=== PATIENT | female | born 1930 | race Caucasian/White ===

== ENCOUNTER 2018-02-09 16:15 | Outpatient (CLI) | payer SELFPAY | END 2018-02-09 16:16 | disposition critical access hospital (66) | LOC: EMS 16:15 | PROVIDERS: ATTEND Surgery | DX: R06.00 Dyspnea, unspecified (principal) | CPT/HCPCS: A0425; A0429 ==

== ENCOUNTER 2018-02-09 16:37 | Emergency (ER) | payer SELFPAY ==
--- NOTE | 2018-02-09 17:08 | ED Physician Documentation ---
PD HPI DYSPNEA - Stated complaint Stated Complaint: DYSPNEA - Chief complaint Chief Complaint: Resp - History obtained from History obtained from: Patient, EMS - History of Present Illness Timing - onset: How many weeks ago (1) Timing - onset during: Rest Timing - details: Gradual onset Improved by: O2 Worsened by: Exertion Associated symptoms: Bilateral edema. No: Fever, Cough, Chest pain / discomfort , Palpitations Similar symptoms before: Has not had sx before - Additional information Additional information: The patient is an 87-year-old female who presents with dyspnea that has been getting progressively worse for the past week. She denies cough, chest pain, fever, or lightheadedness. She does report swelling in her feet and legs. She moved here from [place] 1 week ago to live with her granddaughter. She took an airplane flight to get here. Her past medical history is significant for atrial fibrillation, for which she is on digoxin. She is unclear regarding history of similar symptoms in the past. When medics arrived on scene they found the patient with low pulse oximetry of 87% on room air, improving to 99% on supplemental oxygen at 3 L nasal canula. Further history was obtained from the granddaughter after she arrived in the emergency department. She reports that the patient had been hospitalized at [facility] in [facility] for 1 month prior to the granddaughter removing her 1 week ago. She was diagnosed with pulmonary emboli , and colon cancer with pulmonary mets, considered terminal. She also has history of congestive heart failure and pneumonia. The patient's granddaughter has been administering low molecular weight heparin injections daily. She is requesting supplemental oxygen for home use. The patient has an advanced directive stating DO NOT RESUSCITATE, and the granddaughter has promised the patient she will not be hospitalized again. She has an appointment scheduled with Dr. Fisher in [place] for next week, Monday. Review of Systems Constitutional: denies: Fever Ears: denies: Tinnitus/ringing Nose: denies: Congestion Throat: denies: Sore throat Cardiac: denies: Chest pain / pressure, Palpitations Respiratory: reports: Dyspnea. denies: Cough GI: denies: Abdominal Pain, Nausea, Vomiting : denies: Dysuria Skin: denies: Rash Musculoskeletal: reports: Extremity swelling. denies: Extremity pain Neurologic: reports: Generalized weakness. denies: Focal weakness, Numbness, Headache PD PAST MEDICAL HISTORY - Past Medical History Cardiovascular: Congestive heart failure, Pulmonary embolism, Atrial fibrillation Respiratory: Pneumonia, Other (Lung CA) Endocrine/Autoimmune: Type 2 diabetes GI: Other (Colon CA) - Present Medications Home Medications: Ambulatory Orders Medication Instructions Recorded Confirmed Cholecalciferol (Vitamin D3) 02/09/18 [Vitamin D3] Digoxin [Lanoxin] 62.5 mcg PO 02/09/18 Ferrous Fumarate [Ferrous Fumarate] 02/09/18 Furosemide [Lasix] 20 mg PO DAILY #30 tablet 02/09/18 Levothyroxine Sodium [Tirosint] 125 mcg PO 02/09/18 Magnesium Oxide [Magnesium] 02/09/18 Mirtazapine [Remeron] 02/09/18 Quetiapine Fumarate 50 mg PO 02/09/18 Rabeprazole Sodium [Aciphex] 20 mg PO 02/09/18 Zopicolone 5 mg PO DAILY PM 02/09/18 - Allergies Allergies/Adverse Reactions: Allergies Allergy/AdvReac Type Severity Reaction Status Date / Time No Known Drug Allergies Allergy Verified 02/09/18 16:49 - Living Situation Living Situation: reports: With family Living Arrangement: reports: At home - Social History Does the pt smoke?: No Additional Social History: Moved here from [place] 1 week ago. - POLST POLST Status: DNR PD ED PE NORMAL - Vitals Vital signs reviewed: Yes (Hypertensive) - General General: Alert and oriented X 3, Well developed/nourished - HEENT HEENT: Atraumatic, Moist mucous membranes - Neck Neck: No adenopathy, No JVD (At 20 elevation.) - Cardiac Cardiac: RRR, No murmur - Respiratory Respiratory: Clear bilaterally - Abdomen Abdomen: Soft, Non tender, Other (Well-healed lower midline abdominal surgical scars.) - Back Back: No CVA TTP - Derm Derm: No rash - Extremities Extremities: No calf tenderness / cord, Other (1+ pedal edema bilaterally.) - Neuro Neuro: Alert and oriented X 3, No motor deficit, No sensory deficit Results - Vitals Vitals: Vital Signs - 24 hr 02/09/18 02/09/18 16:40 19:11 Temperature 36.4 C L Heart Rate 79 92 Respiratory 24 16 Rate Blood Pressure 157/93 H 141/77 H O2 Saturation 99 94 Oxygen O2 Source Nasal cannula Oxygen Flow Rate 4 - EKG (time done) 17:08 Rate: Rate (enter#) (96) Rhythm: Atrial fibrillation Alexander: RAD (+123.) Ischemia: Non specific changes (Diffuse T-wave flattening.) Computer interpretation: Agree with computer - Labs Labs: Laboratory Tests 02/09/18 02/09/18 02/09/18 15:59 17:00 17:45 WBC RBC Hgb Hct MCV MCH MCHC RDW Plt Count MPV Neut # Lymph # Norman # Eos # Baso # Absolute Nucleated RBC Nucleated RBC % Manual Slide Review WBC Morphology Platelet Estimate Platelet Morphology RBC Morph Micro Appear D-Dimer 467.8 H Sodium 137 Potassium 4.2 Chloride 104 Carbon Dioxide 27 Anion Gap 6.0 BUN 11 Creatinine 0.6 Estimated GFR (MDRD) 94 Glucose 123 H Calcium 8.3 L Total Bilirubin 0.4 AST 16 ALT 11 Alkaline Phosphatase 71 Troponin I B-Natriuretic Peptide Total Protein 5.8 L Albumin 2.8 L Globulin 3.0 Albumin/Globulin Ratio 0.9 L Lipase 32 Urine Color YELLOW Urine Clarity CLEAR Urine pH 7.0 Ur Specific [place] 1.020 Urine Protein NEGATIVE Urine Glucose (UA) NEGATIVE Urine Ketones NEGATIVE Urine Occult Blood NEGATIVE Urine Nitrite NEGATIVE Urine Bilirubin NEGATIVE Urine Urobilinogen 0.2 (NORMAL) Ur Leukocyte Esterase NEGATIVE Ur Microscopic Review NOT INDICATED Urine Culture Comments NOT INDICATED Last Dose Date Last Dose Time Digoxin 02/09/18 02/09/18 02/09/18 17:45 17:45 17:59 WBC 7.0 RBC 4.20 Hgb 10.8 L Hct 36.3 L MCV 86.5 MCH 25.7 L MCHC 29.7 L RDW 21.2 H Plt Count 218 MPV 7.3 L Neut # 5.2 Lymph # 1.1 L Norman # 0.5 Eos # 0.2 Baso # 0.0 Absolute Nucleated RBC 0.00 Nucleated RBC % 0.0 Manual Slide Review Indicated WBC Morphology NORMAL APPEARANCE Platelet Estimate NORMAL (130-450,000) Platelet Morphology NORMAL APPEARANCE RBC Morph Micro Appear 1+ OVALOCYTES D-Dimer Sodium Potassium Chloride Carbon Dioxide Anion Gap BUN Creatinine Estimated GFR (MDRD) Glucose Calcium Total Bilirubin AST ALT Alkaline Phosphatase Troponin I < 0.04 B-Natriuretic Peptide Total Protein Albumin Globulin Albumin/Globulin Ratio Lipase Urine Color Urine Clarity Urine pH Ur Specific [place] Urine Protein Urine Glucose (UA) Urine Ketones Urine Occult Blood Urine Nitrite Urine Bilirubin Urine Urobilinogen Ur Leukocyte Esterase Ur Microscopic Review Urine Culture Comments Last Dose Date UNKNOWN Last Dose Time UNKNOWN Digoxin 0.6 02/09/18 17:59 WBC RBC Hgb Hct MCV MCH MCHC RDW Plt Count MPV Neut # Lymph # Norman # Eos # Baso # Absolute Nucleated RBC Nucleated RBC % Manual Slide Review WBC Morphology Platelet Estimate Platelet Morphology RBC Morph Micro Appear D-Dimer Sodium Potassium Chloride Carbon Dioxide Anion Gap BUN Creatinine Estimated GFR (MDRD) Glucose Calcium Total Bilirubin AST ALT Alkaline Phosphatase Troponin I B-Natriuretic Peptide 428 H Total Protein Albumin Globulin Albumin/Globulin Ratio Lipase Urine Color Urine Clarity Urine pH Ur Specific [place] Urine Protein Urine Glucose (UA) Urine Ketones Urine Occult Blood Urine Nitrite Urine Bilirubin Urine Urobilinogen Ur Leukocyte Esterase Ur Microscopic Review Urine Culture Comments Last Dose Date Last Dose Time Digoxin - Rads (name of study) Portable CXR Radiology: Prelim report reviewed, EMP read contemporaneously, See rad report ( 1. Mild cardiomegaly. 2. Moderate bilateral perihilar interstitial prominence. Differential is between early interstitial edema versus airway disease/viral syndrome.) PD MEDICAL DECISION MAKING - ED course Complexity details: reviewed results, re-evaluated patient, considered differential, d/w patient, d/w family, other (d/w respiratory therapist for home oxygen set-up.) ED course: The patient has a history of bilateral pulmonary emboli, lung cancer, colon cancer, congestive heart failure, and atrial fibrillation, on digoxin. She presents to the emergency department with dyspnea and has a low pulse oximetry of 87% on room air. Her pulse oximetry improved to 96% on 2 L supplemental oxygen by nasal cannula. She has an advanced directive stating DO NOT RESUSCITATE, and her daughter is adamant that she not be admitted to the hospital. The patient concurs that she prefers dying at home rather than being in the hospital. The patient and her granddaughter request home oxygen to make her more comfortable. The granddaughter is willing to pay for the home oxygen service. I discussed this with River at [facility], and he will set the patient up with home oxygen when she is discharged. I discussed with the patient and her granddaughter anticipated outpatient follow-up next week, as well as confirming to them the option of returning to the emergency department if they so desire. She had been on Lasix while in the hospital in [place], but was not prescribed Lasix when she left 1 week ago. She has noticed swelling of her legs since that time, and her BNP today is elevated at 428. She will be discharged with prescription for Lasix 20 mg daily. 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 You can use home oxygen at 2 L nasal cannula when at rest as prescribed. You may turn it up to 3 L if needed when walking to the bathroom. Follow up with your primary physician next week as scheduled. Return to the emergency department if increasing difficulty breathing, or otherwise worsening symptoms.
--- NOTE | 2018-02-09 17:20 | XRAY Preliminary Report ---
Exam: XR CHEST 1 VIEW X-RAY IMPRESSION: 1. Mild cardiomegaly. 2. Moderate bilateral perihilar interstitial prominence. Differential is between early interstitial e jaylan versus airway disease/viral syndrome. [facility] SITE ID: [id number]
--- NOTE | 2018-02-09 17:24 | XRAY Report ---
EXAM: CHEST RADIOGRAPHY EXAM DATE: 02/09/2018 04:58 PM. CLINICAL HISTORY: Shortness of breath for 2 days. COMPARISON: None. TECHNIQUE: 1 view. FINDINGS: Lungs/Pleura: Moderate bilateral perihilar interstitial prominence. No airspace consolidation. No eff usion nor pneumothorax. Normal lung volumes. Mediastinum: Mild cardiomegaly. No tracheal shift. Other: None. IMPRESSION: 1. Mild cardiomegaly. 2. Moderate bilateral perihilar interstitial prominence. Differential is between early interstitial e jaylan versus airway disease/viral syndrome. [facility] Referring Provider Line: [phone] SITE ID: [id number]
[2018-02-09 17:42] LABS: BILIRUBIN,URINE NEGATIVE (NEGATIVE); GLUCOSE, URINE (UA) NEGATIVE (NEGATIVE); KETONES,URINE (UA) NEGATIVE (NEGATIVE); LEUKOCYTE ESTERASE, URINE NEGATIVE (NEGATIVE); NITRITE,URINE NEGATIVE (NEGATIVE); OCCULT BLOOD,URINE NEGATIVE (NEGATIVE); PROTEIN,URINE NEGATIVE (NEGATIVE); UROBILINOGEN,URINE 0.2 (NORMAL) E.U./dL (NORMAL)
[2018-02-09 18:05] LABS: CLARITY,URINE CLEAR (CLEAR)
[2018-02-09 18:11] LABS: BASOPHILS % (AUTO) 0.5 %; EOSINOPHILS # (AUTO) 0.2 10^3/uL (0.0-0.7); EOSINOPHILS % (AUTO) 2.7 %; HGB - HEMOGLOBIN 10.8 g/dL (12.0-16.0); LYMPHOCYTES # (AUTO) 1.1 10^3/uL (1.5-3.5); LYMPHOCYTES % (AUTO) 15.7 %; MEAN CORPUSCULAR HEMOGLOBIN 25.7 pg (27.0-31.0); MEAN CORPUSCULAR HGB CONC 29.7 g/dL (32.0-36.0); MEAN CORPUSCULAR VOLUME 86.5 fL (81.0-99.0); MEAN PLATELET VOLUME 7.3 fL (7.9-10.8); MONOCYTES # (AUTO) 0.5 10^3/uL (0.0-1.0); MONOCYTES % (AUTO) 7.8 %; NEUTROPHILS # (AUTO) 5.2 10^3/uL (1.5-6.6); NEUTROPHILS % (AUTO) 73.3 %; PLT - PLATELET COUNT 218 10^3/uL (130-450); RED CELL DISTRIBUTION WIDTH 21.2 % (12.0-15.0)
[2018-02-09 18:21] LABS: ALBUMIN 2.8 g/dL (3.2-5.5); ALBUMIN/GLOBULIN RATIO 0.9 (1.0-2.2); BILIRUBIN,TOTAL 0.4 mg/dL (0.2-1.0); CALCIUM 8.3 mg/dL (8.5-10.3); CREATININE 0.6 mg/dL (0.4-1.0); TOTAL PROTEIN 5.8 g/dL (6.7-8.2)
[2018-02-09 18:25] LABS: DIGOXIN 0.6 ng/mL
[2018-02-09 19:05] LABS: PLATELET ESTIMATE, MANUAL NORMAL (130-450,000) (NORMAL); PLATELET MORPHOLOGY NORMAL APPEARANCE (NORMAL)
[2018-02-09 19:11] VITALS: BP 141/77
== END 2018-02-09 19:46 | disposition home or self-care (01) ==
LOC: ED 16:37
DX: R09.02 Hypoxemia (principal); I27.82 Chronic pulmonary embolism; C18.9 Malignant neoplasm of colon, unspecified; C34.90 Malignant neoplasm of unspecified part of unspecified bronchus or lung; I50.9 Heart failure, unspecified; I48.91 Unspecified atrial fibrillation; Z66 Do not resuscitate; E11.9 Type 2 diabetes mellitus without complications
CPT/HCPCS: 36415; 71045; 80053; 80162; 81001; 81003; 83690; 83880; 84484; 85025; 85379; 87086; 93005; 99284

== ENCOUNTER 2018-02-13 06:36 | Outpatient (CLI) | payer SELFPAY | END 2018-02-13 06:37 | disposition EMS.NT | LOC: EMS 06:36 | PROVIDERS: ATTEND Surgery | DX: Z03.89 Encounter for observation for other suspected diseases and conditions ruled out (principal) ==

== ENCOUNTER 2018-03-04 10:05 | Emergency (ER) | payer OTHER ==
[2018-03-04 10:46] LABS: HGB - HEMOGLOBIN 11.8 g/dL (12.0-16.0); MEAN CORPUSCULAR HEMOGLOBIN 26.7 pg (27.0-31.0); MEAN CORPUSCULAR HGB CONC 31.9 g/dL (32.0-36.0); MEAN CORPUSCULAR VOLUME 83.5 fL (81.0-99.0); MEAN PLATELET VOLUME 8.1 fL (7.9-10.8); RED BLOOD COUNT 4.43 10^6/uL (4.20-5.40); RED CELL DISTRIBUTION WIDTH 19.9 % (12.0-15.0)
[2018-03-04 10:50] LABS: INR 1.6 (0.8-1.2); PT - PROTHROMBIN TIME 17.9 secs (9.9-12.6)
[2018-03-04 11:01] LABS: ALBUMIN 2.7 g/dL (3.2-5.5); ALBUMIN/GLOBULIN RATIO 0.8 (1.0-2.2); BILIRUBIN,TOTAL 0.6 mg/dL (0.2-1.0); CALCIUM 8.7 mg/dL (8.5-10.3); CREATININE 0.6 mg/dL (0.4-1.0); TOTAL PROTEIN 6.3 g/dL (6.7-8.2)
--- NOTE | 2018-03-04 12:16 | ED Physician Documentation ---
PD HPI GI BLEED - Stated complaint Stated Complaint: BLOOD IN STOOL - Chief complaint Chief Complaint: Abd Pain - History obtained from History obtained from: Patient, Family - History of Present Illness Timing - onset: Yesterday (2) Timing - duration: Days (2) Timing - details: Abrupt onset, Waxing and waning Associated symptoms: Maroon stool Contributing factors: No: Sick contact, Bad food, Travel Improved by: No: Eating Worsened by: No: Eating Similar symptoms before: Diagnosis (had colon mass/cancer and has elected for hospice. Has had some bleeding from it at times.) Review of Systems Constitutional: denies: Fever, Chills Nose: denies: Rhinorrhea / runny nose, Congestion Throat: denies: Sore throat Cardiac: denies: Chest pain / pressure, Palpitations Respiratory: denies: Dyspnea, Cough GI: reports: Nausea, Bloody / black stool. 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 - Present Medications Home Medications: Ambulatory Orders Medication Instructions Recorded Confirmed Cholecalciferol (Vitamin D3) 02/09/18 [Vitamin D3] Digoxin [Lanoxin] 62.5 mcg PO 02/09/18 Ferrous Fumarate [Ferrous Fumarate] 02/09/18 Furosemide [Lasix] 20 mg PO DAILY #30 tablet 02/09/18 Levothyroxine Sodium [Tirosint] 125 mcg PO 02/09/18 Magnesium Oxide [Magnesium] 02/09/18 Rabeprazole Sodium [Aciphex] 20 mg PO 02/09/18 Apixaban [Eliquis] 5 mg PO 03/04/18 Diphenoxylate/Atropine [Lomotil] 1 each PO QID PRN #15 tablet 03/04/18 HYDROcod/ACETAM 5/325 [[place] 5/325] 1 tab PO Q6H PRN #15 tablet 03/04/18 Metronidazole [Flagyl] 500 mg PO BID #14 tablet 03/04/18 Ondansetron HCl [Zofran] 4 mg PO Q6H PRN #20 tablet 03/04/18 - Allergies Allergies/Adverse Reactions: Allergies Allergy/AdvReac Type Severity Reaction Status Date / Time No Known Drug Allergies Allergy Verified 02/09/18 16:49 - Social History Does the pt smoke?: No Smoking Status: Never smoker - POLST POLST Status: DNR PD ED PE NORMAL - Vitals Vital signs reviewed: Yes - General General: No acute distress, Well developed/nourished - HEENT HEENT: Atraumatic, Pharynx benign - Neck Neck: Supple, no meningeal sign, No adenopathy - Cardiac Cardiac: RRR, No murmur - Respiratory Respiratory: Clear bilaterally - Abdomen Abdomen: Normal bowel sounds, Soft, Non distended, No organomegaly - Rectal Rectal: Other (brown to rust colored stools in vault. ) - Back Back: No CVA TTP - Derm Derm: Normal color, Warm and dry - Neuro Neuro: No motor deficit, Normal speech, Other (poor short term memory and not oriented to time. ). No: Alert and oriented X 3 Results - Vitals Vitals: Oxygen O2 Source Nasal cannula Oxygen Flow Rate 4 - Labs Labs: Laboratory Tests 03/04/18 03/04/18 03/04/18 10:20 10:20 10:20 WBC 9.0 RBC 4.43 Hgb 11.8 L Hct 37.0 MCV 83.5 MCH 26.7 L MCHC 31.9 L RDW 19.9 H Plt Count 271 MPV 8.1 PT 17.9 H INR 1.6 H APTT 36.2 H Sodium Potassium Chloride Carbon Dioxide Anion Gap BUN Creatinine Estimated GFR (MDRD) Glucose Calcium Total Bilirubin AST ALT Alkaline Phosphatase Total Protein Albumin Globulin Albumin/Globulin Ratio Lipase Blood Type A POSITIVE Antibody Screen NEGATIVE 03/04/18 10:20 WBC RBC Hgb Hct MCV MCH MCHC RDW Plt Count MPV PT INR APTT Sodium 138 Potassium 3.7 Chloride 97 L Carbon Dioxide 32 Anion Gap 9.0 BUN 14 Creatinine 0.6 Estimated GFR (MDRD) 94 Glucose 186 H Calcium 8.7 Total Bilirubin 0.6 AST 20 ALT 13 Alkaline Phosphatase 79 Total Protein 6.3 L Albumin 2.7 L Globulin 3.6 Albumin/Globulin Ratio 0.8 L Lipase 39 Blood Type Antibody Screen PD MEDICAL DECISION MAKING - ED course Complexity details: considered differential, d/w patient, d/w family (patient is DNR 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 Talked with daughter about plan of treatment. They are not wanting surgery for the colon mass, which is likely cause of the bleeding. So can try to reduce bleeding and see where counts are. Daughter and patient would like transfusion if it is comforting. I outlined the concept that if there is some bleeding and stops and transfusion would reduce symptoms, then 1-2 units might be reasonable. However, if she has significant bleeding, then large unit trasnfusion would not make sense and that would represent the "tipping point" of allowing natural . Daughter liked that conceptually. ) Departure - Departure Disposition: Home, Self Care Clinical Impression: Lower GI bleed, Colonic mass, Anticoagulant long-term use Condition: Stable Record reviewed to determine appropriate education?: Yes Instructions: ED Hematochezia Stable Follow-Up: Tresa Fisher PA [Primary Care Provider] - Prescriptions: Diphenoxylate/Atropine [Lomotil] 1 each PO QID PRN #15 tablet PRN Reason: Diarrhea HYDROcod/ACETAM 5/325 [[place] 5/325] 1 tab PO Q6H PRN #15 tablet PRN Reason: Pain Metronidazole [Flagyl] 500 mg PO BID #14 tablet Ondansetron HCl [Zofran] 4 mg PO Q6H PRN #20 tablet PRN Reason: Nausea / Vomiting Comments: Drink lots of fluids. Stop the Eliquis blood thinner. Use Tylenol or hydrocodone if needed for pain. Use Lomotil if needed for diarrhea. Ondansetron for nausea if needed. Flagyl twice daily for a week in case of some intestinal infection concurrent or precipitating the bleeding. Recheck if significant bleeding develops or current level of it persists beyond a couple more days. Follow-up with hospice tomorrow as planned. Discharge Date/Time: 03/04/18 14:40
[2018-03-04] MEDS ORDERED: TRANEXAMIC ACID 1,000 MG in SODIUM CHLORIDE 0.9% 100ML 100 ML IV STA (12:42)
[2018-03-04] MEDS ORDERED: SODIUM CHLORIDE 0.9% 1,000 ML IV ONE (12:42)
[2018-03-04] MEDS ORDERED: ONDANSETRON 4 MG/2 ML VIAL IVP STA (12:42)
[2018-03-04] MEDS ORDERED: metroNIDAZOLE 500 MG/100 ML 500 MG/100 ML BAG IV ONE (12:42)
[2018-03-04] MEDS ORDERED: DIPHENOX/ATROPINE 2.5/0.025 MG TABLET PO STA (12:43)
[2018-03-04] MEDS ORDERED: MORPHINE 2 MG/ML SYRINGE IVP STA (12:43)
[2018-03-04 14:27] VITALS: BP 107/57
== END 2018-03-04 14:40 | disposition home or self-care (01) ==
LOC: ED 10:05
DX: K92.2 Gastrointestinal hemorrhage, unspecified (principal); K63.89 Other specified diseases of intestine; Z66 Do not resuscitate; C18.9 Malignant neoplasm of colon, unspecified; C79.9 Secondary malignant neoplasm of unspecified site; E11.9 Type 2 diabetes mellitus without complications; Z79.01 Long term (current) use of anticoagulants
CPT/HCPCS: 36415; 80053; 83690; 85027; 85610; 85730; 86850; 86900; 86901; 96365; 96375; 99283; 99284; A9270; J2270